=== PATIENT | male | born 1995 | race American Indian/Alaskan Native ===

== ENCOUNTER 2016-12-21 21:30 | Emergency (ER) | payer SELFPAY ==
[2016-12-21 23:53] VITALS: TEMP 98.2
--- NOTE | 2016-12-21 23:56 | ED PDOC ---
Arrival/HPI - General Chief Complaint: Lower Extremity Problem/Injury Time Seen by Provider: 12/21/16 23:52 Historian: Patient - History of Present Illness Narrative History of Present Illness (Text): 12/21/16 23:53 21 y/o male, no pmh, nkda, last tetanus under 2 years ago, c/o rt. foot pain s/ p jump and landed on the rt. foot from playing the basketball with sock on with puncture wound. Aching pain, painful to walk and bear weight, no numbness or tingling, no dizziness, no headache, no night sweat, no ankle or achilles pain, no other medical or psychological complaints. Past Medical History - Provider Review Nursing Documentation Reviewed: Yes - Psychiatric Hx Substance Use: No Family/Social History - Physician Review Nursing Documentation Reviewed: Yes Family/Social History: Unknown Family HX Smoking Status: n Hx Alcohol Use: No Hx Substance Use: No Allergies/Home Meds Allergies/Adverse Reactions: Allergies No Known Allergies Allergy (Verified 12/21/16 23:54) Review of Systems - Review of Systems Constitutional: absent: Fatigue, Fevers Eyes: absent: Vision Changes ENT: absent: Hearing Changes Respiratory: absent: SOB, Cough Cardiovascular: absent: Chest Pain Gastrointestinal: absent: Abdominal Pain, Nausea, Vomiting Musculoskeletal: Arthralgias. absent: Back Pain, Neck Pain, Joint Swelling, Myalgias Skin: Other (puncture wound). absent: Rash, Pruritis, Skin Lesions Neurological: absent: Headache, Dizziness Psychiatric: absent: Anxiety, Depression, Suicidal Ideation Physical Exam Vital Signs Reviewed: Yes Vital Signs Temp Pulse Resp BP Pulse Ox 12/22/16 03:50 82 16 120/74 100 12/22/16 01:31 80 16 120/82 99 12/21/16 23:50 98.2 F 88 18 118/74 99 Temperature: Afebrile Blood Pressure: Normal Pulse: Regular Respiratory Rate: Normal Appearance: Positive for: Well-Appearing, Non-Toxic, Comfortable Pain Distress: Moderate Mental Status: Positive for: Alert and Oriented X 3 - Systems Exam Head: Present: Atraumatic, Normocephalic Pupils: Present: PERRL Extroacular Muscles: Present: EOMI Conjunctiva: Present: Normal Mouth: Present: Moist Mucous Membranes Neck: Present: Normal Range of Motion Respiratory/Chest: Present: Clear to Auscultation, Good Air Exchange. No: Respiratory Distress, Accessory Muscle Use Cardiovascular: Present: Regular Rate and Rhythm, Normal S1, S2. No: Murmurs Abdomen: Present: Normal Bowel Sounds. No: Tenderness, Distention, Peritoneal Signs Back: Present: Normal Inspection Upper Extremity: Present: Normal Inspection. No: Cyanosis, Edema Lower Extremity: Present: Normal Inspection, Other (Rt. foot: +ttp with no swelling to the 2nd distal toe base region with no ecchymosis, no laceration or abrasion wound, visible puncture wound approx. 0.2cm diameter noted on the base of the digit toe puncture wound, FROM without limitation, sensation intact, motor 5/5, ). No: Edema Neurological: Present: GCS=15, CN II-XII Intact, Speech Normal Skin: Present: Warm, Dry, Normal Color. No: Rashes Psychiatric: Present: Alert, Oriented x 3, Normal Insight, Normal Concentration Medical Decision Making ED Course and Treatment: 12/21/16 23:55 -motrin/keflex/percocet -xray 12/22/16 03:16 -xray show there is foreign body. puncture wound no visible foreign bodies superficially. I discussed with the patient about the foreign body in the puncture wound which he clinically feels the puncture wound as well, agreed on the wound explore. -Sensation intact, motor 5/5, wound irrigate with 1000cc of normal saline, clean with betadine, sterile procedure, #11 blade made superior and inferior cut with 1cm on 6 and 12 o'clock of the wound with wound continuously irrigate and clean with 100cc of normal saline, no visible foreign bodies, incision wound sutured with total of 4 stiches of 4-0 nylon without stiching the puncture wound location, sensation intact, motor 5/5, +DPPT pulses. -Xray was repeated and the foreign body still remain. The case discussed and examined with Dr. Mohamud, suggest outpatient book cutter follow up. I discussed with the patient about the importance with outpatient book cutter follow up. -Discharge home with keflex, motrin, bacitracin, trish wrap, crutches, non-weight bearing, follow up with your own pmd and book cutter within 2 days, return to the ER for any new or worsening signs or symptoms, sutures on the foot need to be removed by day 10-12, return to the ER for any new or worsening signs or symptoms. - RAD Interpretation Radiology Orders: 12/21/16 23:58 FOOT RIGHT 3 VIEWS ROUTINE [RAD] Stat 12/22/16 02:48 FOOT RIGHT 3 VIEWS ROUTINE [RAD] Stat Thin metallic on the plantar surface of 2nd MTP joint. Associate Brand Manager: Radiologist - Medication Orders Current Medication Orders: Discontinued Medications Cephalexin Monohydrate (Keflex) 500 mg PO STAT STA PRN Reason: Protocol Stop: 12/22/16 02:49 Last Admin: 12/22/16 03:42 Dose: 500 mg Ibuprofen (Motrin Tab) 800 mg PO STAT STA Stop: 12/21/16 23:59 Last Admin: 12/22/16 03:42 Dose: 800 mg Oxycodone/Acetaminophen (Percocet 5/325 Mg Tab) 1 tab PO STAT STA Stop: 12/22/16 03:34 Last Admin: 12/22/16 03:42 Dose: 1 tab Tetanus/Reduced Diphtheria/Acell Pertussis (Boostrix Vaccine Inj) 0.5 ml IM .ONCE ONE Stop: 12/22/16 02:49 Last Admin: 12/22/16 03:40 Dose: - PA / [employer]OL[employer]ALL [employer]MER / Resident Statement MD/DO has reviewed & agrees with the documentation as recorded. MD/DO has examined the patient and agrees with the treatment plan. Disposition/Present on Arrival - Present on Arrival Any Indicators Present on Arrival: No History of DVT/PE: No History of Uncontrolled Diabetes: No Urinary Catheter: No History of Decub. Ulcer: No History Surgical Site Infection Following: None - Disposition Have Diagnosis and Disposition been Completed?: Yes Diagnosis: Puncture wound, Foot injury Disposition: HOME/ ROUTINE Disposition Time: 23:56 Patient Plan: Discharge Condition: IMPROVED Additional Instructions: Discharge home with posterior splint, crutches, motrin, ice compression, non- weight bearing, follow up with your own pmd and book cutter within 2 days, return to the ER for any new or worsening signs or symptoms. Prescriptions: Bacitracin Ointment [Bacitracin] 1 appful TOP BID #15 g Cephalexin [cephalexin] 500 mg PO QID #40 cap Ibuprofen [Motrin Tab] 600 mg PO QID PRN #30 tab PRN Reason: Other Referrals: Deedee May DPM [Staff Provider] - Follow up with primary [facility] [Outside] - Follow up with primary Forms: WORK NOTE
[2016-12-22] MEDS ORDERED: TDAP Vaccine 0.5 mL Syr IM ONE (02:48)
[2016-12-22] MEDS ORDERED: Oxycodone/Acetaminophen 5/325 mg Tab PO STA (03:33)
[2016-12-22 04:28] VITALS: RESP 16
[2016-12-22 04:32] VITALS: BP 120/74; PULSE 82; O2SAT 100
--- NOTE | 2016-12-22 07:28 | RAD ---
PROCEDURE: Right Foot Radiographs. HISTORY: rt. foot puncture wound/foreign body? COMPARISON: 12/21/2016 FINDINGS: BONES: Normal. No fracture. JOINTS: Normal. SOFT TISSUES: There is a thin metallic foreign body adjacent to the 2nd MTP joint on the plantar side. This measures 8 mm in length. This is unchanged OTHER FINDINGS: None. IMPRESSION: There is a thin metallic foreign body adjacent to the 2nd MTP joint on the plantar side. This measures 8 mm in length. This is unchanged
--- NOTE | 2016-12-22 07:44 | RAD ---
PROCEDURE: Right Foot Radiographs. HISTORY: rt. foot 2nd metatarsal injury with pain COMPARISON: None. FINDINGS: BONES: Normal. No fracture. JOINTS: Normal. SOFT TISSUES: Foreign body OTHER FINDINGS: None. IMPRESSION: There is a small thin metallic foreign body on the plantar surface of the 2nd MTP joint
== END 2016-12-22 03:50 | disposition home or self-care (01) ==
LOC: ED 21:30
DX: S91.341A Puncture wound with foreign body, right foot, initial encounter (principal); X58.XXXA Exposure to other specified factors, initial encounter; Y93.67 Activity, basketball